=== PATIENT | female | born 1955 | race Caucasian/White ===

== ENCOUNTER 2025-03-12 09:11 | Day surgery (SDC) | payer MEDICARE, BC ==
--- NOTE | 2025-03-01 13:41 | ELECTROCARDIOGRAPH REPORT ---
[facility] Test Date: 2025-03-01 Test Time: 14:38:48 Pat Name: JOHNNY DE PZA Department: [facility]-PRE-OP Patient ID: [id number] Room: Gender: F Manufacturing Maintenance Manager: DAYNE : 1955 Requested By: YARON VANCE Order Number: [id number] Reading MD: Dr. CHARLEY Shine Measurements Intervals [place] Rate: 62 P: 67 SC: 187 QRS: 27 QRSD: 120 T: 70 QT: 416 QTc: 423 Interpretive Statements Sinus rhythm IVCD, consider atypical RBBB Electronically Signed On 03-02-2025 16:46:[address] CHARLEY Shine Please click the below link to view image of tracing.
[2025-03-01 14:06] LABS: MEAN PLATELET VOLUME 8.0 FL (7.4-10.4); PRE OP HEMATOCRIT 41.1 % (35.0-45.0); PRE OP HEMOGLOBIN 14.3 g/dL (12.0-16.0); PRE OP PLATELET COUNT 224 X10'3 (140-440); PRE OP WHITE BLOOD COUNT 6.6 10'3 (4.8-10.8); RED CELL DISTRIBUTION WIDTH 13.3 % (11.5-14.5)
[2025-03-01 14:45] LABS: CREATININE 0.70 MG/DL (0.40-0.90); PRE OP ALT 24 U/L (30-65); PRE OP ANION GAP 9 (8-16); PRE OP AST 17 U/L (10-37); PRE OP BILIRUB, TOTAL 0.5 MG/DL (0.0-1.0); PRE OP GLUCOSE 128 MG/DL (70-104); PRE OP POTASSIUM 3.8 MMOL/L (3.4-5.1); PRE OP SODIUM 137 MMOL/L (135-145); TOTAL CARBON DIOXIDE 27.3 MMOL/L (24-32); eGFR 83 ML/MIN
[~2025-03-12] VITALS: Ht 165.1 cm; Wt 89.8 kg
[2025-03-12] MEDS: DOCUMENT DATE & TIME OF BETA-BLOCKER PO ONE (05:30)
[2025-03-12] MEDS: clindamycin-Cleocin 900mg/D5W 50 ML IV ONE (05:30)
[~2025-03-12 09:11] MED LIST: BUPIVAcaine/PF 2.5mg/ml (0.25%) 10ml vial ONE; DULO60CA65 PO; GABA-530 PO; GUMMY MULTIVITAMIN PO; LIDOcaine 2% (20mg/ml) 5ml vial ONE; LOSA1TAB36 PO; METO-395 PO; triamcinolone acetonide 40mg/ml inj ONE
[2025-03-12 09:25] VITALS: BP 140/59; PULSE 51; RESP 16; TEMP 97.7; O2SAT 100
[2025-03-12] MEDS: ringers solution, lacted 1,000 ML IV SCH (09:45)
[2025-03-12] MEDS ORDERED: fentaNYL/PF 50MCG/1 ML 2ML syringe ONE (10:06)
[2025-03-12] MEDS ORDERED: midazolam 1 mg/ML 2ml injection ONE (10:06)
[2025-03-12] MEDS ORDERED: propofol inj 20 ML IV ONE (10:29)
[2025-03-12 10:31] VITALS: BP 104/57; PULSE 54; RESP 15; O2SAT 95
[2025-03-12 10:40] VITALS: BP 123/63; PULSE 53; RESP 12; O2SAT 96
--- NOTE | 2025-03-12 10:43 | OPERATIVE REPORT ---
Operative Report Providers to ~ Date of Procedure: Mar 12, 2025 Pre-Operative Diagnosis: Left middle finger calcification and stiffness Post-Operative Diagnosis SAME as PRE-Op Procedure Performed Left middle finger proximal interphalangeal joint capsulectomy Surgeon: Oh Agustin MD [employer] [facility] Bailiff None Anesthesiologist: Junito Trimble Type of Anesthesia: Other (Local anesthetic) Findings: Whitish calcification involving the ulnar collateral ligament and joint capsule suspicious for gout Prosthetics\Implants used: None Estimated Blood Loss: None Specimen Removed: Soft tissue specimen Description of Procedure: The patient is a 69-year-old woman who presented with stiffness and pain involvi ng her left middle finger. X-rays showed a calcification in the area of the ulnar collateral ligament region. She failed to improve despite nonoperative treatment. Surgery is indicated to improve function. Risks and benefits were discussed with the patient some of which include but are not limited to infection, bleeding, stiffness, recurrence and incomplete relief of pain. She agreed to proceed. Once in the operating room the arm was prepped and draped in usual manner. Time-out procedure was observed. Local anesthetic was infiltrated in the base of the digit and the tourniquet was inflated on the forearm. A curved incision was made dorsally centered over the PIPJ joint. Flaps were elevated and the joint was entered by making an incision along the ulnar edge of the the ulnar lateral band. The tendon was then retracted allowing access to the joint. Capsulectomy was performed there was significant amount of white chalky material involving the dorsal ulnar collateral ligament and there appeared to be some erosion of the proximal phalanx head at the very edge of the ligament origin. Capsulectomy was performed and the whitish material was sent to pathology for identification. The incision was then irrigated the tendon was repaired using Vicryl and the skin was closed with Prolene suture. A soft sterile dressing was then applied and the tourniquet was released. The hand and finger perfused well and she was taken to the recovery room in stable condition OH AGUSTIN Jr., MD Mar 12, 2025 10:43
[2025-03-12 10:50] VITALS: BP 106/70; PULSE 58; RESP 11; O2SAT 95
[2025-03-12 11:00] VITALS: BP 135/73; PULSE 59; RESP 14; O2SAT 96
== END 2025-03-12 11:01 | disposition home or self-care (01) ==
LOC: PAS 09:11
PROVIDERS: ATTEND Orthopaedic Surgery Hand Surgery
DX: M1A.9XX1 Chronic gout, unspecified, with tophus (tophi) (principal); M25.642 Stiffness of left hand, not elsewhere classified; M79.645 Pain in left finger(s); I45.4 Nonspecific intraventricular block; I10 Essential (primary) hypertension; R73.09 Other abnormal glucose; Z90.710 Acquired absence of both cervix and uterus; Z98.890 Other specified postprocedural states
CPT/HCPCS: 26525; 36415; 80053; 82948; 85025; 93005; A4215; A6449; J2003; J2250; J2704; J3010; J3490; J7030; J7120; Z7506; Z7512; J3301